=== PATIENT | female | born 1990 | race Caucasian/White ===

== ENCOUNTER 2017-09-26 18:51 | Emergency (ER) | payer OTHER ==
--- NOTE | 2017-09-26 19:33 | EDPHY ---
H & P Time Seen by Provider: 09/26/17 18:56 HPI/ROS: CHIEF COMPLAINT: Possible rabies exposure History by patient HISTORY OF PRESENT ILLNESS: 27-year-old with no past medical history presents with concern of rabies exposure after she was attacked by a raccoon while on her bike. She says the raccoon touched her lower legs and feet. She did not get bit but may have sustained some scratches though she has no obvious demonstrable wounds. Patient states she spoke with someone at [facility] and has an e-mail letter from them recommending she get post exposure prophylaxis. Patient denies any allergies. Her last tetanus is unknown. REVIEW OF SYSTEMS: As in HPI, and all other systems reviewed and are negative Smoking Status: Never smoked Physical Exam: General Appearance: Alert and no distress. Head: Normocephalic, atraumatic Eyes: Pupils equal and round no injection. Extraocular movements are intact. Musculoskeletal: Neck is supple and nontender. Normal gait Extremities: No obvious wounds or deformities. Skin: No rashes or lesions Constitutional: Initial Vital Signs Temperature (C) 36.8 C 09/26/17 19:02 Heart Rate 82 09/26/17 19:02 Respiratory Rate 16 09/26/17 19:02 Blood Pressure 145/92 H 09/26/17 19:02 O2 Sat (%) 98 09/26/17 19:02 O2 Delivery Mode Room Air Allergies/Adverse Reactions: No Known Allergies Allergy (Verified 09/26/17 19:07) Home Medications: Medication Instructions Recorded Bcp 11/04/14 Diltiazem 09/26/17 MDM/Departure - [facility] ED Course/Re-evaluation: Patient had low risk exposure to raccoon however she is very concerned and [facility] is recommending post exposure prophylaxis the patient was given rabies immunoglobulin as well as initiation with 1st dose of rabies vaccine. - Depart Disposition: Home, Routine, Self-Care Clinical Impression: Rabies exposure Condition: Good Instructions: Rabies Immune Globulin (By injection), Rabies Vaccine (ED) Additional Instructions: You were seen by Dr. Shikha Glez today. We have given you the rabies immunoglobulin and the 1st dose of the vaccine. Return for your additional vaccine doses on day 3, 7 and 14 after 1st dose. Return for any worsening or new concerns. Referrals: CAMI GORDON MD [Other] - As per Instructions
[2017-09-26] MEDS ORDERED: RABIES VACC, HUMAN DIPLOID/PF 2.5 UNIT VIAL (RABAVERT) IM ONE (19:50)
[2017-09-26] MEDS ORDERED: RABIES IMMUNE GLOBULIN 300 UNIT/2 ML VIAL IM ONE (19:50)
[2017-09-26] MEDS ORDERED: TDAP ADULT 0.5 ML INJ (BOOSTRIX) IM ONE (19:53)
[2017-09-26 20:58] VITALS: BP 122/75
== END 2017-09-26 20:35 | disposition home or self-care (01) ==
LOC: CED 18:51
DX: Z20.3 Contact with and (suspected) exposure to rabies (principal); Z23 Encounter for immunization